=== PATIENT | female | born 1940 | race Caucasian/White ===

== ENCOUNTER 2017-01-13 12:38 | Inpatient (IN) | payer MEDICARE ==
[~2017-01-13] VITALS: Ht 152.4 cm; Wt 68.0 kg
--- NOTE | 2017-01-13 15:10 | NUR ---
Pt admitted from [facility] via wheelchair with Dx of Post Polio Syndrome, Pt A/O x3, No s/s of respiratory distress noted. Pt states she is DNR/DNI no documentation provided, advance directives will be faxed by [facility]. Noted with bruising on mid abdomen. Dr. Ozzy sue called for admission orders. Pt teaching provided, pt oriented to unit. Pt encouraged to use call light and not to get OOB.
[2017-01-13 16:00] VITALS: BP 104/45
[2017-01-13 17:02] VITALS: BP 104/45
[2017-01-13] MEDS ORDERED: HYDR10SY7 PO (17:59)
[2017-01-13] MEDS ORDERED: LACT1CAP71 PO (17:59)
[2017-01-13] MEDS ORDERED: TEMA30CA PO (17:59)
[2017-01-13] MEDS ORDERED: INSU100I14 (17:59)
[2017-01-13] MEDS ORDERED: FOLI-65 PO (17:59)
[2017-01-13] MEDS ORDERED: CLOP75TA33 PO (17:59)
[2017-01-13] MEDS ORDERED: LORA10TA50 PO (17:59)
[2017-01-13] MEDS ORDERED: AMLO10TA2 PO (17:59)
[2017-01-13] MEDS ORDERED: LISI-607 PO (17:59)
[2017-01-13] MEDS ORDERED: ALBU8.5H2 INH (17:59)
[2017-01-13] MEDS ORDERED: ACET-73 PO (17:59)
[2017-01-13] MEDS ORDERED: HYDR-3976 PO (17:59)
[2017-01-13] MEDS ORDERED: CA C1TAB95 PO (17:59)
[2017-01-13] MEDS ORDERED: DIAZ5TAB4 PO (17:59)
[2017-01-13] MEDS ORDERED: PRED2.5T PO (17:59)
[2017-01-13] MEDS ORDERED: GUAI600T PO (17:59)
[2017-01-13] MEDS ORDERED: LANS30CA56 PO (17:59)
[2017-01-13] MEDS ORDERED: METH1POW39 MC (17:59)
[2017-01-13] MEDS ORDERED: ESCI20TA37 PO (17:59)
[2017-01-13] MEDS ORDERED: INSU3INS6 SQ (17:59)
[2017-01-13] MEDS ORDERED: TEMAZEPAM 30 MG CAPSULE PO PRN ×2 (18:15→20:30)
[2017-01-13] MEDS ORDERED: HYDROCODONE/APAP 7.5-325MG TABLET PO PRN ×2 (18:15→20:30)
[2017-01-13] MEDS ORDERED: GUAIFENESIN LA 600 MG TABLET.SA PO PRN (18:15)
[2017-01-13] MEDS ORDERED: DIAZEPAM 5 MG TABLET PO PRN (18:15)
[2017-01-13] MEDS ORDERED: ACETAMINOPHEN 325 MG TABLET PO PRN (18:15)
[2017-01-13] MEDS ORDERED: hydrOXYzine HCL 10 MG TABLET PO PRN (18:15)
--- NOTE | 2017-01-13 18:45 | NUR ---
Pt noted with o2 sat 87%, Respirations even and unlabored. DR. Ozzy Barahona was called waiting for call back.
--- NOTE | 2017-01-13 19:17 | NUR ---
SPOKE TO PHARMACIST WHO STATES THAT [facility] CASE[facility] WILL PUT IN MED ORDERS FOR PATIENT. AWAITING ORDERS AT THIS TIME.
--- NOTE | 2017-01-13 19:30 | NUR ---
Received patient resting in bed with no s/s of distress. Complaints of generalized pain, assured of immediate interventions as soon as meds are verified by pharmacy. Kept in a comfortable position, other needs addressed in the meantime. Call light within reach. Will continue to monitor.
[2017-01-13] MEDS ORDERED: ACETAMINOPHEN ES 500 MG TABLET PO PRN (20:30)
[2017-01-13] MEDS: HYDROCODONE/APAP 7.5-325MG TABLET PO SCH (20:40)
[2017-01-13] MEDS: TEMAZEPAM 30 MG CAPSULE PO PRN (20:40)
[2017-01-13] MEDS ORDERED: INSULIN GLARGINE,HUM 300 UNITS/3 ML CARTRIDGE SQ SCH (21:00)
[2017-01-13] MEDS ORDERED: BLOOD SUGAR DIAGNOSTIC 1 EACH STRIP VI SCH (21:00)
--- NOTE | 2017-01-13 21:02 | NUR ---
Order for Peak Flow for tomorrow, 01/14/[address] Ozzy Payne, with instructions to call him for results less than 400. RT Ambrosio notified. Acknowledged order. STAT CXR and Room Air ABG likewise ordered.
[2017-01-13 21:05] VITALS: BP 80/93
[2017-01-13 21:46] LABS: ABG BASE EXCESS -5.2 mmol/L; ABG HCO3 19.3 mmol/L; ABG PH 7.384 (7.350-7.450); ABG PO2 79.5 mmHg (75.0-100.0); ABG SITE RIGHT RADIAL; ABG TOTAL HEMOGLOBIN 7.4 G/dL (12.0-16.0); COHb 2.4 % (0.5-1.5); MetHb 0.3 % (0.0-1.5); O2Hb 92.2 % (94.0-97.0); VENT MODE Room Air
[2017-01-14] MEDS: HYDROCODONE/APAP 7.5-325MG TABLET PO SCH ×4 (04:47→20:18)
[2017-01-14] MEDS ORDERED: PANTOPRAZOLE SODIUM 40 MG TABLET.DR PO SCH (07:00)
--- NOTE | 2017-01-14 07:07 | NUR ---
Patient awake in her bed, no s/s of distress. Verbalized feeling better and pain relief after interventions. Snacks given as patient stated she was feeling hungry. Latest BS taken: 100. Santacruz catheter in place and patent. Adequate urine output noted. Frequent checks done. Due meds given. Kept clean and dry. Needs attended. Call light kept within reach. Safety precautions in place. Endorsed accordingly.
[2017-01-14] MEDS ORDERED: INSULIN LISPRO 1000 UNITS/10 ML VIAL(HUMALOG) SQ SCH (07:30)
[2017-01-14 08:00] VITALS: BP 112/50
[2017-01-14] MEDS ORDERED: CLOPIDOGREL 75 MG TABLET PO SCH (09:00)
[2017-01-14] MEDS ORDERED: LORATADINE 10 MG TABLET PO SCH (09:00)
[2017-01-14] MEDS ORDERED: ESCITALOPRAM OXALATE 10 MG TABLET PO SCH (09:00)
[2017-01-14] MEDS ORDERED: LEVOFLOXACIN 500 MG TABLET PO SCH (09:00)
[2017-01-14] MEDS ORDERED: predniSONE 5 MG TABLET PO SCH (09:00)
[2017-01-14] MEDS ORDERED: LISINOPRIL 5 MG TABLET PO SCH (09:00)
[2017-01-14] MEDS ORDERED: AMLODIPINE 10 MG TABLET PO SCH (09:00)
--- NOTE | 2017-01-14 09:15 | NUR ---
PT PEAK FLOW WAS DONE AT THIS TIME, AFTER MULTIPLE ATTEMPTS PT WAS NO SUCCESSFUL AND GOT AN 80 ON THE THIRD ATTEMPT. PER ANA CASEY MD TO BE NOTIFIED IF LESS THEN <400. PT AT THIS TIME WAS NOT ABLE TO REACH MD GOALS ON THE PEAK FLOW THEREFORE RN WAS NOTIFIED AND WILL CALL MD.PT HAS NO DISTRESS NOTED AND IS STABLE AT THIS TIME. PT REMAINS ON 1LPM VIA NC. WILL CONTINUE TO MONITOR PT THROUGHOUT SHIFT.
--- NOTE | 2017-01-14 10:22 | NUR ---
pt had medications in her bad. redeemed and sent to pharmacy for identification. will follow up to know meds. Addendum: 01/14/17 at 1023 by ANTONI MOISE RN wrong pt
[2017-01-14 11:41] LABS: BASOPHILS # (AUTO) 0.1 K/uL (0.0-8.0); BASOPHILS % (AUTO) 0.6 % (0.0-2.0); EOSINOPHILS # (AUTO) 0.3 K/uL (0.0-0.7); EOSINOPHILS % (AUTO) 2.1 % (0.0-7.0); HEMATOCRIT 27.3 % (37-47); LYMPHOCYTES # (AUTO) 3.4 K/UL (0.8-4.8); MEAN CORPUSCULAR HEMOGLOBIN 27.2 UUG (27.0-31.0); MEAN CORPUSCULAR HGB CONC 33 g/dL (32.0-37.0); MEAN CORPUSCULAR VOLUME 82.8 FL (81.0-99.0); MONOCYTES # (AUTO) 1.4 K/UL (0.1-1.30); MONOCYTES % (AUTO) 10.8 % (0.0-11.0); NEUTROPHILS # (AUTO) 7.4 K/UL (1.8-8.9); NEUTROPHILS % (AUTO) 59.5 % (38.5-71.5); PLATELET COUNT (AUTO) 498 K/UL (150-450); WHITE BLOOD COUNT (AUTO) 12.6 K/UL (4.0-11.2)
[2017-01-14 11:55] LABS: CARBON DIOXIDE 27 mmol/L (21-32); CHLORIDE 106 mmol/L (98-107); CREATININE 1.7 mg/dL (0.6-1.3); GLUCOSE 105 mg/dL (74-106); POTASSIUM 4.5 mmol/L (3.5-5.1); UREA NITROGEN, BLOOD 38 mg/dL (7-18)
[2017-01-14] MEDS ORDERED: CALCIUM CITRATE 950MG TAB PO SCH (12:00)
[2017-01-14 12:02] LABS: ALANINE AMINOTRANSFERASE 23 U/L (14-59); ALKALINE PHOSPHATASE 80 U/L (50-136); ASPARTATE AMINOTRANSFERASE 18 U/L (15-37); BILIRUBIN,TOTAL 0.2 mg/dL (0.2-1.0); TOTAL PROTEIN, SERUM 6.7 g/dL (6.4-8.2)
--- NOTE | 2017-01-14 15:25 | NUR ---
Parachute Repairer: SW met with patient at bedside to assess needs and provide support. Patient is a 76-year-old female admitted for post polio syndrome, and presented with progressive functional decline. Pt appeared to be having a difficulty coping with ARU hospitalization, and verbalized "I just want to go home." Pt stated "my board and care manager cna talked me into this." She later stated "I miss home" and presented with a sad affect. Pt demonstrated depression due to her functional decline and hospitalization. She reported she has had a long hx of medical issues which have declined her ability to ambulate. She reported she was unable to complete physical therapy today, and stated "I was unable to get up." Per pt, her family lives in the [facility] and there is a lack of of social support. Pt stated "I don't even know why my brother won't talk to me." SW provided supportive counseling to deal with pt's depressive symptoms related to her decline in functioning. SW encouraged pt to continue physical therapy and acknowledged her feelings of wanting to return home. SW will provide mental health outpatient referrals due to lack of support. SW will continue to address issues of loss related to hospitalization.
--- NOTE | 2017-01-14 18:11 | NUR ---
pt complains to of pain during shift. pt given norco. pain reduced after reassessment. pt couldnt tolerate PT exercises. pt had difficulty ambulating and therapy was stopped. pt stayed in bed due to immobility. pt has pertinent labs such as Hemoglobin 7.4. notified md. director inpatient headache program notified. director inpatient headache program ordered labs. notified doctor. no recommendations. will continue to monitor patient.
[2017-01-14] MEDS ORDERED: DEXTROSE 50% 50 ML DISP.SYRIN IV PRN (19:30)
--- NOTE | 2017-01-14 19:30 | NUR ---
RECEIVED PATIENT AWAKE, ALERT AND ORIENTED X [address] DE HER TO EVALUATE PATIENT. ORDERS RECEIVED. C/O LOWER RIGHT BACK PAIN WITH REPOSITIONING.MEDICATED WITH ADEQUATE RELIF OF PAIN, ENOUGH WHERE SHE COULD SLEEP COMFORTABLY. INSTRUCTED TO CALL RN FOR ANY NEEDS OR REQUESTS, AND TO NOT GET OOB WITHOUT FIRST CALLING NURSE. PATIENT VERBALIZES GOOD UNDERSTANDING. CALL LIGHT WITIN REACH AAT AND BED ALARM ON.
--- NOTE | 2017-01-14 20:00 | NUR ---
SCD'S ORDERED FOR VTE PROPHYLAXIS. PATIENT REFUSES TO WEAR THEM. STATES SHE DOES NOT LIKE THEM. INFORMED PATIENT OF REASON IT IS IMPORTANT TO WEAR THE SCD'S BUT STILL REFUSING TO WEAR THEM.
[2017-01-14] MEDS: LACTOBACILLUS RHAMNOSUS GG 1 EACH CAPSULE PO SCH (20:16)
[2017-01-14] MEDS: LEVOFLOXACIN 250 MG TABLET PO SCH (20:17)
[2017-01-14] MEDS: BLOOD SUGAR DIAGNOSTIC 1 EACH STRIP VI SCH (20:25)
--- NOTE | 2017-01-14 21:00 | NUR ---
PM CARE COMPLETED. REPOSITIONED TO SIDES FOR COMFORT. LEONG CARE/ KLEVER CARE DONE PER PROTACOL.URINE IS CLEAR RADHA AT THIS TIME WITHOUT VISUAL SIGNS OF SEDIMENT.LEVAQUIN PO HAS BEEN DECREASED TO 250 MG.
[2017-01-14] MEDS: INSULIN DETEMIR 300 UNIT/3 ML CARTRIDGE SQ SCH (21:01)
[2017-01-14 22:08] VITALS: BP 130/54
--- NOTE | 2017-01-15 01:00 | NUR ---
URINE COLLECTED FROM LEONG PORT WITH ASCEPTIC TECHNIQUE AND SENT TO LAB FOR U/A AND C/S.
[2017-01-15 03:37] LABS: *BILIRUBIN,URIN NEGATIVE (NEGATIVE); *BLOOD, URINE 1+ (NEGATIVE); *CLARITY,URINE CLEAR (CLEAR); *COLOR,URINE YELLOW (YELLOW); *KETONES,URINE NEGATIVE (NEGATIVE); *PROTEIN,URINE NEGATIVE (NEGATIVE); *UROBILINOGEN,URINE 0.2 E.U./dl (NORMAL); LEUKOCYTE ESTERASE ,URINE TRACE (NEGATIVE); NITRITE, URINE NEGATIVE (NEGATIVE); UGLUCOSE NEGATIVE (NEGATIVE)
[2017-01-15 03:42] LABS: BACTERIA,URINE MODERATE /HPF (NONE SEEN); SQUAMOUS EPITHELIAL CELL,UR FEW /HPF (NONE SEEN); YEAST,URINE MODERATE /HPF (NONE SEEN)
--- NOTE | 2017-01-15 06:00 | NUR ---
SLEPT WELL TONIGHT.NO C/O RESPIRATORY DISTRESS ON 1 LPM/NASAL CANNULA. SATS OVER 92%. COMFORTABLE ON HER RIGHT SIDE AT PRESENT. CALL LIGHT WITHIN REACH. APPEARS IN NAD
[2017-01-15] MEDS: BLOOD SUGAR DIAGNOSTIC 1 EACH STRIP VI SCH ×4 (06:50→20:46)
[2017-01-15 08:14] LABS: BASOPHILS # (AUTO) 0.1 K/uL (0.0-8.0); BASOPHILS % (AUTO) 0.6 % (0.0-2.0); EOSINOPHILS # (AUTO) 0.3 K/uL (0.0-0.7); EOSINOPHILS % (AUTO) 2.7 % (0.0-7.0); HEMATOCRIT 28.1 % (37-47); HEMOGLOBIN 9.4 G/DL (12.0-16.0); LYMPHOCYTES # (AUTO) 3.2 K/UL (0.8-4.8); LYMPHOCYTES % (AUTO) 27.8 % (20.5-51.5); MEAN CORPUSCULAR HEMOGLOBIN 27.4 UUG (27.0-31.0); MEAN CORPUSCULAR HGB CONC 33 g/dL (32.0-37.0); MEAN CORPUSCULAR VOLUME 82.2 FL (81.0-99.0); MONOCYTES # (AUTO) 1.3 K/UL (0.1-1.30); NEUTROPHILS # (AUTO) 6.6 K/UL (1.8-8.9); NEUTROPHILS % (AUTO) 57.9 % (38.5-71.5); PLATELET COUNT (AUTO) 486 K/UL (150-450); RED BLOOD CELL COUNT(AUTO) 3.42 MIL/UL (4.2-5.4); WHITE BLOOD COUNT (AUTO) 11.5 K/UL (4.0-11.2)
[2017-01-15 08:30] VITALS: BP 126/54
[2017-01-15] MEDS: LACTOBACILLUS RHAMNOSUS GG 1 EACH CAPSULE PO SCH ×2 (08:53→20:41)
[2017-01-15] MEDS: predniSONE 5 MG TABLET PO SCH (08:54)
[2017-01-15] MEDS: CLOPIDOGREL 75 MG TABLET PO SCH (08:54)
[2017-01-15] MEDS: ESCITALOPRAM OXALATE 10 MG TABLET PO SCH (08:56)
[2017-01-15] MEDS: MULTIVIT, IRON, MIN NO. 8, FA TABLET PO SCH (08:56)
[2017-01-15] MEDS: HYDROCODONE/APAP 7.5-325MG TABLET PO SCH ×4 (08:56→20:42)
[2017-01-15] MEDS ORDERED: predniSONE 2.5 MG TABLET PO SCH (09:00)
[2017-01-15] MEDS ORDERED: MV FE OTHER MIN PO SCH (09:00)
[2017-01-15] MEDS ORDERED: Medication Not On Formulary EA (Lactobacillus Combo No.11 (Probiotic) 1 EACH) PO SCH (09:00)
[2017-01-15] MEDS ORDERED: FOLIC ACID PO SCH (09:00)
[2017-01-15] MEDS ORDERED: DIAZEPAM 5 MG TABLET PO SCH (09:00)
[2017-01-15] MEDS ORDERED: Medication Not On Formulary EA (Loratadine 10 MG) PO SCH (09:00)
[2017-01-15] MEDS ORDERED: [UNRECOGNIZED DRUG - OTHER] PO SCH (09:00)
[2017-01-15] MEDS ORDERED: LORATADINE 10 MG TABLET PO SCH (09:00)
[2017-01-15 09:27] LABS: THYROID STIMULATING HORMONE 4.414 mIU/mL (0.358-3.740)
[2017-01-15 09:36] LABS: EOSINOPHILS % (MANUAL) 7 % (0-8); LYMPHOCYTES % (MANUAL) 29 % (20-40); MONOCYTES % (MANUAL) 6 % (2-10); NEUTROPHILS % (MANUAL) 58 % (42-75)
[2017-01-15 09:50] LABS: ALANINE AMINOTRANSFERASE 21 U/L (14-59); ALKALINE PHOSPHATASE 83 U/L (50-136); ASPARTATE AMINOTRANSFERASE 17 U/L (15-37); BILIRUBIN,TOTAL 0.2 mg/dL (0.2-1.0); CARBON DIOXIDE 28 mmol/L (21-32); CHLORIDE 106 mmol/L (98-107); CHOLESTEROL 223 mg/dL (<200); CREATININE 1.6 mg/dL (0.6-1.3); GLUCOSE 83 mg/dL (74-106); HDL CHOLESTEROL 40 mg/dL (40-60); MAGNESIUM 1.8 mg/dL (1.8-2.4); PHOSPHOROUS 4.1 mg/dL (2.5-4.9); POTASSIUM 4.7 mmol/L (3.5-5.1); TOTAL PROTEIN, SERUM 6.9 g/dL (6.4-8.2); TRIGLYCERIDES 292 MG/DL (30-150); UREA NITROGEN, BLOOD 33 mg/dL (7-18)
[2017-01-15] MEDS ORDERED: IV 1/2NS 1000 ML 1,000 ML IV PRN (10:45)
[2017-01-15 11:17] LABS: IRON, SERUM 31 ug/dL (50-175)
--- NOTE | 2017-01-15 12:00 | NUR ---
pt refused EKG. pt instructed the risks of not adhering to ordered intervention. pt states" the doctors are taking advantage of me. they are taking advantage of my insurance". continued to monitor pt for complications.
--- NOTE | 2017-01-15 14:47 | NUR ---
dr Chester notified about pts refusal.
--- NOTE | 2017-01-15 17:22 | NUR ---
IDT MEETING 01/15/17
--- NOTE | 2017-01-15 17:23 | NUR ---
IDT MEETING 01/15/17
[2017-01-15] MEDS: INSULIN REGULAR, HUMAN 300 UNIT/3 ML VIAL SQ PRN ×2 (17:28→20:48)
[2017-01-15] MEDS: ATORVASTATIN 20 MG TABLET PO SCH (20:41)
[2017-01-15] MEDS: EZETIMIBE 10 MG TABLET PO SCH (20:41)
[2017-01-15] MEDS: LEVOFLOXACIN 250 MG TABLET PO SCH (20:42)
[2017-01-15] MEDS: INSULIN DETEMIR 300 UNIT/3 ML CARTRIDGE SQ SCH (20:49)
[2017-01-15 22:11] VITALS: BP 125/61
[2017-01-16] MEDS: ACETAMINOPHEN 325 MG TABLET PO PRN (03:42)
[2017-01-16] MEDS: BLOOD SUGAR DIAGNOSTIC 1 EACH STRIP VI SCH ×4 (06:33→21:04)
--- NOTE | 2017-01-16 06:34 | NUR ---
Patient alert and able to let needs known. Slept well throughout the night. Showed no signs of pain or discomfort, no signs of respiratory distress but does have O2 at 1 LPM via N/C. Patient maintained clean and dry, repositioned for comfort. Santacruz catheter patent with clear yellow urine. Call light within reach, all needs attended.
[2017-01-16 07:46] LABS: CARBON DIOXIDE 32 mmol/L (21-32); CHLORIDE 106 mmol/L (98-107); CREATININE 1.4 mg/dL (0.6-1.3); GLUCOSE 93 mg/dL (74-106); POTASSIUM 4.5 mmol/L (3.5-5.1); UREA NITROGEN, BLOOD 25 mg/dL (7-18)
[2017-01-16 08:18] VITALS: BP 126/60
[2017-01-16] MEDS: CLOPIDOGREL 75 MG TABLET PO SCH (09:29)
[2017-01-16] MEDS: LACTOBACILLUS RHAMNOSUS GG 1 EACH CAPSULE PO SCH ×2 (09:29→21:04)
[2017-01-16] MEDS: LORATADINE 10 MG TABLET PO SCH (09:30)
[2017-01-16] MEDS: predniSONE 5 MG TABLET PO SCH (09:30)
[2017-01-16] MEDS: ESCITALOPRAM OXALATE 10 MG TABLET PO SCH (09:30)
[2017-01-16] MEDS: MULTIVIT, IRON, MIN NO. 8, FA TABLET PO SCH (09:30)
[2017-01-16] MEDS: HYDROCODONE/APAP 7.5-325MG TABLET PO SCH ×4 (09:30→21:04)
[2017-01-16] MEDS: INSULIN REGULAR, HUMAN 300 UNIT/3 ML VIAL SQ PRN ×3 (12:37→21:08)
--- NOTE | 2017-01-16 19:23 | NUR ---
pt had visitors during the day. pt was able to verbalize complaints with friends. pt states that she feels weak during exercise. she also states that she is in continous pain. pt blood sugar given humulin sliding scale. pt was also given norco for pain. interventions were effective. seen results on yeast on hoffman. recommended no new orders. will continue to assess for complications and monitor for distress.
[2017-01-16] MEDS: ATORVASTATIN 20 MG TABLET PO SCH (21:04)
[2017-01-16] MEDS: EZETIMIBE 10 MG TABLET PO SCH (21:04)
[2017-01-16] MEDS: INSULIN DETEMIR 300 UNIT/3 ML CARTRIDGE SQ SCH (21:07)
[2017-01-16 21:40] VITALS: BP 119/50
[2017-01-17] MEDS: ACETAMINOPHEN 325 MG TABLET PO PRN ×3 (04:07→18:27)
[2017-01-17] MEDS: BLOOD SUGAR DIAGNOSTIC 1 EACH STRIP VI SCH ×4 (06:15→21:04)
--- NOTE | 2017-01-17 06:16 | NUR ---
Patient alert and able to let needs known, slept well throughout the night. Showed no signs of respiratory distress, does have O2 via n/c at 1 LPM. Patient does have hoffman catheter with clear yellow urine. Patient does have call light within reach, all needs attended to.
[2017-01-17] MEDS: LACTOBACILLUS RHAMNOSUS GG 1 EACH CAPSULE PO SCH ×2 (08:44→20:59)
[2017-01-17] MEDS: HYDROCODONE/APAP 7.5-325MG TABLET PO SCH ×4 (08:45→20:59)
[2017-01-17] MEDS: predniSONE 5 MG TABLET PO SCH (08:45)
[2017-01-17] MEDS: CLOPIDOGREL 75 MG TABLET PO SCH (08:45)
[2017-01-17] MEDS: ESCITALOPRAM OXALATE 10 MG TABLET PO SCH (08:45)
[2017-01-17] MEDS: MULTIVIT, IRON, MIN NO. 8, FA TABLET PO SCH (08:47)
[2017-01-17] MEDS: INSULIN REGULAR, HUMAN 300 UNIT/3 ML VIAL SQ PRN ×2 (12:05→17:22)
--- NOTE | 2017-01-17 13:20 | NUR ---
DAILY NURSING NOTE MD SULLIVAN IN TO SEE THE PT. ACCORDING TO HIM THE BONE IS NOT ATTACHED TO THE SHAWANDA AND HE DETERMINES THAT SHE WILL REQUIRE SURGERY MORE SURGERY. ACCORDING TO THE PT SHE HAD HER FIRST SURGERY 02/2015 AND SHE HAS HAD PROBLEMS EVER SINCE. HE SAYS HE WILL MAKE THE ARRANGEMENTS AND CALL US OR HAVE SOMEONE FROM HIS OFFICE CALL AND GIVE US THE DETAILS FAR THE DATE AND TIME EXACT PROCEDURE AND OTHER NECESSARY ORDERS. HE SAYS SHE WILL NEED TO BE TYPE AND CROSSMATCH FOR POSSIBLE BLOOD TRANSFUSION JUST IN CASE SINCE HER HCT IS BETWEEN 27-28.
[2017-01-17] MEDS: DIAZEPAM 5 MG TABLET PO PRN (15:05)
--- NOTE | 2017-01-17 19:30 | NUR ---
Patient resting on her bed, respirations even and unlabored. Complains of generalized pain at level 4/10. Interventions will be provided. Call light within reach. Will continue to monitor.
[2017-01-17 20:48] VITALS: BP 117/46
[2017-01-17] MEDS: ATORVASTATIN 20 MG TABLET PO SCH (20:59)
[2017-01-17] MEDS: EZETIMIBE 10 MG TABLET PO SCH (20:59)
[2017-01-17] MEDS: INSULIN DETEMIR 300 UNIT/3 ML CARTRIDGE SQ SCH (21:10)
[2017-01-18] MEDS: ACETAMINOPHEN 325 MG TABLET PO PRN ×3 (00:25→12:04)
--- NOTE | 2017-01-18 07:03 | NUR ---
Patient awake in her bed, no s/s of distress. Slept well through the night. Pain meds given with some relief. VS WNL. On 1L O2 via NC. Respirations even and unlabored. Santacruz catheter in place and patent. Adequate urine output noted. Frequent checks done. Due meds given. Kept clean and dry. Needs attended. Call light kept within reach. Safety precautions in place. Endorsed accordingly.
--- NOTE | 2017-01-18 07:07 | NUR ---
Seen by Dr. Villanueva last night, approved for discharge today per patient's request. Rod Machine Operator Rosa made aware. Darrick, Fast Food Attendant at receiving facility made aware. Endorsed to AM shift nurse.
[2017-01-18 08:00] VITALS: BP 110/52
--- NOTE | 2017-01-18 08:00 | NUR ---
Patient was received this am asleep but arousable. She is on 1 liter of O2 per NC POX is 96% . Patient denied being in pain . She is [place]. Will continue to monitor this patient and address any needs she may have today.
[2017-01-18] MEDS: LORATADINE 10 MG TABLET PO SCH (08:36)
[2017-01-18] MEDS: MULTIVIT, IRON, MIN NO. 8, FA TABLET PO SCH (08:36)
[2017-01-18] MEDS: predniSONE 5 MG TABLET PO SCH (08:36)
[2017-01-18] MEDS: LACTOBACILLUS RHAMNOSUS GG 1 EACH CAPSULE PO SCH ×2 (08:36→21:17)
[2017-01-18] MEDS: CLOPIDOGREL 75 MG TABLET PO SCH (08:36)
[2017-01-18] MEDS: ESCITALOPRAM OXALATE 10 MG TABLET PO SCH (08:36)
[2017-01-18] MEDS: HYDROCODONE/APAP 7.5-325MG TABLET PO SCH ×4 (08:37→21:17)
[2017-01-18] MEDS: BLOOD SUGAR DIAGNOSTIC 1 EACH STRIP VI SCH ×4 (08:39→21:18)
--- NOTE | 2017-01-18 12:03 | NUR ---
Patient c/o pain 5/10 after PT on her right lower side. She asked for Tylenol. Tylenol given at his time.
--- NOTE | 2017-01-18 12:11 | NUR ---
Patient blood sugar was taken at this time it was 161. Patient refused any coverage
--- NOTE | 2017-01-18 14:09 | NUR ---
[place] scheduled for 1300 , patient did not want it until at this time. [place] given now
[2017-01-18] MEDS: INSULIN REGULAR, HUMAN 300 UNIT/3 ML VIAL SQ PRN ×2 (17:08→21:00)
--- NOTE | 2017-01-18 17:46 | NUR ---
1700 [place] patient wanted to take it close to 1800 , will be giving it soon
[2017-01-18] MEDS: FLUCONAZOLE 100 MG TABLET PO SCH (17:55)
[2017-01-18 20:48] VITALS: BP 119/48
[2017-01-18] MEDS: INSULIN DETEMIR 300 UNIT/3 ML CARTRIDGE SQ SCH (21:00)
[2017-01-18] MEDS: EZETIMIBE 10 MG TABLET PO SCH (21:17)
[2017-01-18] MEDS: ATORVASTATIN 20 MG TABLET PO SCH (21:17)
[2017-01-19] MEDS: BLOOD SUGAR DIAGNOSTIC 1 EACH STRIP VI SCH ×4 (06:46→20:30)
--- NOTE | 2017-01-19 06:47 | NUR ---
Patient alert and able to let certain needs known, slept well throughout the night, no complains of pain or discomfort. No respiratory distress noted, currently on 1 LPM via N/C. Call light within reach all needs attended to.
[2017-01-19 08:13] LABS: BASOPHILS # (AUTO) 0.1 K/uL (0.0-8.0); BASOPHILS % (AUTO) 0.8 % (0.0-2.0); EOSINOPHILS # (AUTO) 0.3 K/uL (0.0-0.7); EOSINOPHILS % (AUTO) 2.5 % (0.0-7.0); HEMATOCRIT 28.2 % (37-47); HEMOGLOBIN 9.1 G/DL (12.0-16.0); LYMPHOCYTES # (AUTO) 3.3 K/UL (0.8-4.8); LYMPHOCYTES % (AUTO) 29.6 % (20.5-51.5); MEAN CORPUSCULAR HEMOGLOBIN 26.8 UUG (27.0-31.0); MEAN CORPUSCULAR HGB CONC 32 g/dL (32.0-37.0); MEAN CORPUSCULAR VOLUME 83.2 FL (81.0-99.0); MONOCYTES # (AUTO) 1.2 K/UL (0.1-1.30); MONOCYTES % (AUTO) 11.2 % (0.0-11.0); NEUTROPHILS # (AUTO) 6.1 K/UL (1.8-8.9); NEUTROPHILS % (AUTO) 55.9 % (38.5-71.5); PLATELET COUNT (AUTO) 464 K/UL (150-450); RED BLOOD CELL COUNT(AUTO) 3.39 MIL/UL (4.2-5.4)
[2017-01-19 08:22] LABS: ALANINE AMINOTRANSFERASE 25 U/L (14-59); ALKALINE PHOSPHATASE 88 U/L (50-136); ASPARTATE AMINOTRANSFERASE 19 U/L (15-37); BILIRUBIN,TOTAL 0.1 mg/dL (0.2-1.0); CARBON DIOXIDE 35 mmol/L (21-32); CHLORIDE 105 mmol/L (98-107); CREATININE 1.3 mg/dL (0.6-1.3); GLUCOSE 94 mg/dL (74-106); MAGNESIUM 1.8 mg/dL (1.8-2.4); PHOSPHOROUS 4.7 mg/dL (2.5-4.9); POTASSIUM 4.4 mmol/L (3.5-5.1); TOTAL PROTEIN, SERUM 6.6 g/dL (6.4-8.2); UREA NITROGEN, BLOOD 25 mg/dL (7-18)
[2017-01-19 08:27] VITALS: BP 127/59
--- NOTE | 2017-01-19 08:30 | NUR ---
RECEIVED PATIENT AWAKE IN BED. COMPLAINED OF LOWER MEDIAL BACK PAIN RATED 5/10. NORCO GIVEN. NO S/S OF DISTRESS. PATIENT IS ALERT AND AND ORIENTED X 4. CALL LIGHT WITHIN REACH. SIDE RAILS UP X2.
[2017-01-19] MEDS: HYDROCODONE/APAP 7.5-325MG TABLET PO SCH ×4 (08:37→20:29)
[2017-01-19] MEDS: predniSONE 5 MG TABLET PO SCH (08:38)
[2017-01-19] MEDS: LACTOBACILLUS RHAMNOSUS GG 1 EACH CAPSULE PO SCH ×2 (08:38→20:29)
[2017-01-19] MEDS: CLOPIDOGREL 75 MG TABLET PO SCH (08:38)
[2017-01-19] MEDS: FLUCONAZOLE 100 MG TABLET PO SCH (08:38)
[2017-01-19] MEDS: MULTIVIT, IRON, MIN NO. 8, FA TABLET PO SCH (08:38)
[2017-01-19] MEDS: ESCITALOPRAM OXALATE 10 MG TABLET PO SCH (08:39)
[2017-01-19] MEDS: INSULIN REGULAR, HUMAN 300 UNIT/3 ML VIAL SQ PRN ×3 (12:01→21:00)
--- NOTE | 2017-01-19 17:00 | NUR ---
TOLERATED THERAPY WELL. PAIN LEVEL AT 0. NO OTHER COMPLAINTS OF DISCOMFORT AT THIS TIME. NO S/S OF DISTRESS. MAINTAINED O2 AT 1 LPM. PATIENT WAS LOOKING FOR EYE GLASSES TRIED TO FIND IT BUT WAS NOT SUCCESSFUL. WILL FOLLOW UP WITH OTHER STAFF.
[2017-01-19] MEDS: EZETIMIBE 10 MG TABLET PO SCH (20:29)
[2017-01-19] MEDS: ATORVASTATIN 20 MG TABLET PO SCH (20:29)
[2017-01-19] MEDS: INSULIN DETEMIR 300 UNIT/3 ML CARTRIDGE SQ SCH (21:00)
[2017-01-19 21:52] VITALS: BP 112/52
[2017-01-20] MEDS: TEMAZEPAM 30 MG CAPSULE PO PRN (01:08)
[2017-01-20] MEDS: BLOOD SUGAR DIAGNOSTIC 1 EACH STRIP VI SCH ×4 (06:56→20:21)
--- NOTE | 2017-01-20 06:56 | NUR ---
Patient slept well after the administration of restoril, she showed no signs of pain or discomfort, no signs of respiratory distress but she is on o2 via n/c getting 1 LPM. Maintained clean and dry, call light within reach,all needs attended to.
[2017-01-20 08:22] VITALS: BP 125/62
[2017-01-20] MEDS: LORATADINE 10 MG TABLET PO SCH (08:27)
[2017-01-20] MEDS: LACTOBACILLUS RHAMNOSUS GG 1 EACH CAPSULE PO SCH ×2 (08:27→20:16)
[2017-01-20] MEDS: FLUCONAZOLE 100 MG TABLET PO SCH (08:27)
[2017-01-20] MEDS: ESCITALOPRAM OXALATE 10 MG TABLET PO SCH (08:27)
[2017-01-20] MEDS: MULTIVIT, IRON, MIN NO. 8, FA TABLET PO SCH (08:28)
[2017-01-20] MEDS: CLOPIDOGREL 75 MG TABLET PO SCH (08:28)
[2017-01-20] MEDS: predniSONE 5 MG TABLET PO SCH (08:28)
[2017-01-20] MEDS: HYDROCODONE/APAP 7.5-325MG TABLET PO SCH ×4 (08:28→21:32)
--- NOTE | 2017-01-20 09:08 | NUR ---
Received patient awake in bed. Alert and oriented. No s/s of distress. Complained of pain over right foot. Pain medication given. Call light within reach. Will continue to monitor
[2017-01-20] MEDS: INSULIN REGULAR, HUMAN 300 UNIT/3 ML VIAL SQ PRN ×3 (12:10→20:24)
--- NOTE | 2017-01-20 13:00 | NUR ---
PATIENT VERBALIZES SHE WANTED TO GO HOME. BUT NO DISCHARGE ORDERS YET. EYE GLASSES STILL CANNOT BE FOUND. INFORMED STRESS TEST TECHNICIAN. PATIENT VERBALIZED OF PAIN ALL OVER RATED 6/10. PAIN MEDICATIONS GIVEN.
--- NOTE | 2017-01-20 19:30 | NUR ---
RECEIVED PATIENT AWAKE, ALERT AND ORIENTED X4 IN NAD AT THIS TIME. NO C/O RESPIRATORY DISTRESS ON OXYGEN AT 1 LPM/NASAL CANNULA WITH ADEQUATE SATS OVER 92%.DIMINISHED BREATH SOUNDS THROUGHOUT. ENCOURAGED TO TAKE DEEP BREATHS Q 1 HOUR. DOES HAVE CHRONIC LBP REQUIRING NORCO QID. PRESENTLY AT A COMFORT LEVEL SHE CAN MANAGE IN ORDER TO REST. REQUESTING TO GO TO BED EARLY TONIGHT.PM CARE DONE. REFUSING TO TAKE OFF DIAPER. LEONG CARE/ KLEVER CARE DONE. URINE IS CLEAR AND WITHOUT SEDIMENT.REPOSITIONED FOR COMFORT/ SLEEP. INSTRUCTED TO CALL RN FOR ALL NEEDS / REQUESTES. PATIENT VERBALIZES UNDERSTANDING. CALL LIGHT WITHIN REACH AAT
[2017-01-20] MEDS: ATORVASTATIN 20 MG TABLET PO SCH (20:16)
[2017-01-20] MEDS: EZETIMIBE 10 MG TABLET PO SCH (20:16)
[2017-01-20] MEDS: INSULIN DETEMIR 300 UNIT/3 ML CARTRIDGE SQ SCH (20:25)
[2017-01-20 22:04] VITALS: BP 103/38
[2017-01-21] MEDS: DIAZEPAM 5 MG TABLET PO PRN (02:59)
[2017-01-21] MEDS: ACETAMINOPHEN 325 MG TABLET PO PRN (02:59)
--- NOTE | 2017-01-21 03:00 | NUR ---
PATIENT STATED PHYSICAL THERAPY WAS HARD FOR HER YESTERDAY AND IT HAS AFFECTED SOME LEFT ANKLE SPASMS WHICH HURT HER. QID NORCO NOT DUE UNTIL 0900 THIS MORNING. TYLENOL 325MG AND VALIUM 2.5 MG PO GIVEN WITH GOOD AFFECT. SLEEPING WELL THEREAFTER. PALN IS TO GO BACK HOME AND BE DISCHARGED EARLY TODAY. CALL LIGHT WITH REACH
--- NOTE | 2017-01-21 06:00 | NUR ---
FEELS BETTER AFTER VALIUM AND TYLENOL WAS GIVEN THIS MORNING. LEONG OUTPUT IS CLEAR AND ADEQUATE THIS SHIFT.IN NAD AT THIS TIME. PLAN IS FOR HER TO GO HOME EARLY TODAY.
[2017-01-21] MEDS: BLOOD SUGAR DIAGNOSTIC 1 EACH STRIP VI SCH ×2 (06:48→12:23)
[2017-01-21 08:00] VITALS: BP 109/55
[2017-01-21] MEDS: LACTOBACILLUS RHAMNOSUS GG 1 EACH CAPSULE PO SCH (08:31)
[2017-01-21] MEDS: ESCITALOPRAM OXALATE 10 MG TABLET PO SCH (08:31)
[2017-01-21] MEDS: MULTIVIT, IRON, MIN NO. 8, FA TABLET PO SCH (08:32)
[2017-01-21] MEDS: predniSONE 5 MG TABLET PO SCH (08:32)
[2017-01-21] MEDS: CLOPIDOGREL 75 MG TABLET PO SCH (08:32)
[2017-01-21] MEDS: FLUCONAZOLE 100 MG TABLET PO SCH (08:32)
[2017-01-21] MEDS: HYDROCODONE/APAP 7.5-325MG TABLET PO SCH ×2 (09:00→12:22)
[2017-01-21] MEDS: INSULIN REGULAR, HUMAN 300 UNIT/3 ML VIAL SQ PRN (12:21)
[2017-01-21] MEDS ORDERED: LORA-114 PO (12:47)
[2017-01-21] MEDS ORDERED: EZET10TA PO (12:47)
[2017-01-21] MEDS ORDERED: DIAZ5TAB4 PO (12:47)
[2017-01-21] MEDS ORDERED: ESCI10TA PO (12:47)
[2017-01-21] MEDS ORDERED: PRED-170 PO (12:47)
[2017-01-21] MEDS ORDERED: LACT1CAP57 PO (12:47)
[2017-01-21] MEDS ORDERED: FLUC100T PO (12:47)
[2017-01-21] MEDS ORDERED: ATOR20TA PO (12:47)
[2017-01-21] MEDS ORDERED: Multivit, Iron, Min No. 8, Fa PO (12:47)
--- NOTE | 2017-01-21 15:48 | NUR ---
pt discharged today with Jacobsen as the person who took her. pt given med sheet and information regarding her care stay in [place]. pt provided education materials such as fall prevention glucose monitoring and smoking cessation. pt verbalizing understanding and was instructed to follow up with pcp. patient answers were questioned. pt used wheelchair to be taken to the car. no signs of acute distress during discharge.
== END 2017-01-21 13:30 | disposition home health service (06) | DRG 91 ==
PROVIDERS: ADMIT Physical Medicine & Rehabilitation Pain Medicine; ATTEND Physical Medicine & Rehabilitation Pain Medicine
DX: G14 Postpolio syndrome (principal); J18.9 Pneumonia, unspecified organism; E43 Unspecified severe protein-calorie malnutrition; N17.0 Acute kidney failure with tubular necrosis; D68.59 Other primary thrombophilia; R53.81 Other malaise; R53.1 Weakness; R29.6 Repeated falls; N31.9 Neuromuscular dysfunction of bladder, unspecified; Z87.440 Personal history of urinary (tract) infections; E11.9 Type 2 diabetes mellitus without complications; Z79.4 Long term (current) use of insulin; Z88.6 Allergy status to analgesic agent; Z91.013 Allergy to seafood; Z91.018 Allergy to other foods; I11.0 Hypertensive heart disease with heart failure; I50.9 Heart failure, unspecified; R19.5 Other fecal abnormalities; D50.0 Iron deficiency anemia secondary to blood loss (chronic); M19.90 Unspecified osteoarthritis, unspecified site; E66.9 Obesity, unspecified; Z68.29 Body mass index [BMI] 29.0-29.9, adult; M06.9 Rheumatoid arthritis, unspecified; Z85.828 Personal history of other malignant neoplasm of skin; Z86.73 Personal history of transient ischemic attack (TIA), and cerebral infarction without residual deficits; Z77.22 Contact with and (suspected) exposure to environmental tobacco smoke (acute) (chronic); Z91.81 History of falling; I70.0 Atherosclerosis of aorta; E78.5 Hyperlipidemia, unspecified; D72.829 Elevated white blood cell count, unspecified
CPT/HCPCS: 36415; 36600; 70030-TC; 71010; 82306; 83550; 83735; 84100; 84443; 85025; 87086; 92526; 92610; 97110; 97112; 97116; 97161; 97530; 97535; A4663; J1815; J7512